=== PATIENT | female | born 1990 | race African-American/Black ===

== ENCOUNTER 2019-01-23 18:42 | Emergency (ER) | payer MEDICAID ==
[2019-01-23 18:51] VITALS: BP 123/64
--- NOTE | 2019-01-23 19:26 | ER Document Report ---
ED Medical Screen (RME) - General Chief Complaint: Nausea/Vomiting Stated Complaint: NAUSEA,VOMITING Time Seen by Provider: 01/23/19 19:24 Mode of Arrival: Ambulatory Information source: Patient Notes: 28-year-old female presents to ED for complaint of anxiety attack this morning. She states she got very nauseated when she became anxious. She states she then vomited several hours later became very dizzy. She states she does this sometimes when she gets a severe anxiety attack. She states her last menstrual period was January 09. She states she is also here because she has back pain. She states when she was 16 she woke up and she had bad back pain went to the doctor they told her she had scoliosis. They gave her some physical therapy and then they sent her on her way. She states she has never had any follow-up and she thinks her scoliosis is getting worse and she is getting more more back pain. She is alert oriented respirations regular and unlabored speaking in full sentences walks with even steady gait. Patient states she is does smoke 1 black in miles a day and smokes pot. She works at [email or web address] and lives with her family. I have greeted and performed a rapid initial assessment of this patient. A comprehensive ED assessment and evaluation of the patient, analysis of test results and completion of medical decision making process will be conducted by an additional ED providers. Dictation of this chart was performed using voice recognition software; therefore, there may be some unintended grammatical errors. - Related Data Allergies/Adverse Reactions: No Known Allergies Allergy (Unverified 01/23/19 18:45) Physical Exam - Vital signs Vitals: Temp Pulse Resp BP Pulse Ox 97.4 F 73 18 123/64 99 01/23/19 18:50 01/23/19 18:50 01/23/19 18:50 01/23/19 18:50 01/23/19 18:50 Course - Vital Signs Vital signs: Temp Pulse Resp BP Pulse Ox 97.4 F 73 18 123/64 99 01/23/19 18:50 01/23/19 18:50 01/23/19 18:50 01/23/19 18:50 01/23/19 18:50
[2019-01-23] MEDS ORDERED: ONDANSETRON 4 MG TAB.RAPDIS PO ONE (19:27)
[2019-01-23 20:09] LABS: ABSOLUTE LYMPHOCYTES (AUTO) 2.2 10^3/uL (0.5-4.7); ABSOLUTE MONOCYTES (AUTO) 0.4 10^3/uL (0.1-1.4); ABSOLUTE NEUT (AUTO) 4.1 10^3/uL (1.7-8.2); BASOPHILS % (AUTO) 0.5 % (0-2); EOSINOPHILS % (AUTO) 0.7 % (0-6); HEMOGLOBIN 12.9 g/dL (12.0-15.5); LYMPHOCYTES % (AUTO) 32.5 % (13-45); MEAN CORPUSCULAR HEMOGLOBIN 30.6 pg (27.0-33.4); MEAN CORPUSCULAR VOLUME 90 fl (80-97); MONOCYTES % (AUTO) 5.7 % (3-13); PLATELET COUNT 267 10^3/uL (150-450); RED BLOOD COUNT 4.21 10^6/uL (3.72-5.28); RED CELL DISTRIBUTION WIDTH 12.8 % (11.5-14.0); SEGMENTED NEUTROPHILS % (AUTO) 60.6 % (42-78); TOTAL CELLS COUNTED % (AUTO) 100 %; WHITE BLOOD COUNT 6.8 10^3/uL (4.0-10.5)
[2019-01-23 20:14] LABS: APPEARANCE,URINE CLEAR; BILIRUBIN,URINE NEGATIVE (NEGATIVE); COLOR,URINE STRAW; GLUCOSE, URINE NEGATIVE (NEGATIVE); KETONES,URINE NEGATIVE (NEGATIVE); LEUKOCYTE ESTERASE,URINE NEGATIVE (NEGATIVE); NITRITE,URINE NEGATIVE (NEGATIVE); PROTEIN,URINE NEGATIVE (NEGATIVE); URINE SPECIFIC GRAVITY 1.008; UROBILINOGEN,URINE NEGATIVE mg/dL (<2.0)
[2019-01-23 20:28] LABS: ALBUMIN 4.5 g/dL (3.5-5.0); ALKALINE PHOSPHATASE 46 U/L (38-126); ANION GAP 9 (5-19); ASPARTATE AMINO TRANSFERASE 19 U/L (14-36); BILIRUBIN,DIRECT 0.2 mg/dL (0.0-0.4); BILIRUBIN,TOTAL 0.7 mg/dL (0.2-1.3); BLOOD UREA NITROGEN 11 mg/dL (7-20); CALCIUM 9.6 mg/dL (8.4-10.2); CARBON DIOXIDE 29 mmol/L (22-30); CHLORIDE 101 mmol/L (98-107); GLUCOSE 103 mg/dL (75-110); POTASSIUM 3.7 mmol/L (3.6-5.0); TOTAL PROTEIN 7.5 g/dL (6.3-8.2)
[2019-01-23] MEDS ORDERED: HYDROXYZINE PAMOATE 25 MG CAPSULE (4 CAP/ER DISP) PO PRN (22:51)
[2019-01-23] MEDS ORDERED: PROMETHAZINE HCL 25 MG TABLET PO ONE (22:51)
--- NOTE | 2019-01-23 22:56 | ER Document Report ---
ED General - General Chief Complaint: Nausea/Vomiting Stated Complaint: NAUSEA,VOMITING Time Seen by Provider: 01/23/19 19:24 Mode of Arrival: Ambulatory Notes: Patient is a 28-year-old female that comes to the emergency department for chief complaint of a panic attack this morning where she got so worked up she vomited, she states she felt like her heart was racing at that time. She states she gets this periodically in the same symptoms happen today. She states that she gets into a mode where she cannot stop thinking about something and this triggers a panic attack. She denies suicidal ideations or homicidal ideations. She denies any current symptoms other than vague nausea. She states she has not eaten a nything all day either. She denies abdominal pain, she denies any flank pain but states she has ongoing pain in the muscles of her back that only sometimes responds to ibuprofen. She is not on any medications currently. She is not diagnosed with any thickness of scoliosis of the back. She smokes, smokes occasional marijuana, denies recreational drugs otherwise. - Related Data Allergies/Adverse Reactions: No Known Allergies Allergy (Unverified 01/23/19 18:45) Past Medical History - General Information source: Patient - Social History Smoking Status: Current Every Day Smoker Chew tobacco use (# tins/day): No Frequency of alcohol use: None Drug Abuse: None Lives with: Family Family History: Reviewed & Not Pertinent Patient has suicidal ideation: No Patient has homicidal ideation: No Renal/ Medical History: Denies: Hx Peritoneal Dialysis Review of Systems - Review of Systems Constitutional: See HPI EENT: No symptoms reported Cardiovascular: No symptoms reported Respiratory: No symptoms reported Gastrointestinal: See HPI Genitourinary: No symptoms reported Female Genitourinary: No symptoms reported Musculoskeletal: No symptoms reported Skin: No symptoms reported Hematologic/Lymphatic: No symptoms reported Neurological/Psychological: See HPI Physical Exam - Vital signs Vitals: Temp Pulse Resp BP Pulse Ox 97.4 F 73 18 123/64 99 01/23/19 18:50 01/23/19 18:50 01/23/19 18:50 01/23/19 18:50 01/23/19 18:50 - Notes Notes: GENERAL: Alert, interacts well. No acute distress. HEAD: Normocephalic, atraumatic. EYES: Pupils equal, round, and reactive to light. Extraocular movements intact. ENT: Oral mucosa moist, tongue midline. Oropharynx unremarkable. Airway patent. LUNGS: Clear to auscultation bilaterally, no wheezes, rales, or rhonchi. No respiratory distress. HEART: Regular rate and rhythm. No murmur ABDOMEN: Soft, non-tender. Non-distended. Bowel sounds present in all 4 quadrants. GENITOURINARY: Deferred EXTREMITIES: Moves all 4 extremities spontaneously. No edema, normal radial and dorsalis pedis pulses bilaterally. No cyanosis. BACK: no cervical, thoracic, lumbar midline tenderness. No saddle anesthesia, normal distal neurovascular exam. Moves all extremities in full range of motion. NEUROLOGICAL: Alert and oriented x3. Normal speech. Cranial nerves II through XII grossly intact. PSYCH: Normal affect, normal mood. SKIN: Warm, dry, normal turgor. No rashes or lesions noted. Course - Re-evaluation Re-evalutation: Patient not current complaints. She is reporting a panic attack which caused her to vomit, she does not have any anxiety. Denies SI or HI. She does not appear anxious on exam. She is reporting intermittent chronic lower back pain. Urinalysis unremarkable, chemistry and CBC unremarkable, test is negative. Patient very inquisitive about her labs, satisfied with negative results. Vital signs unremarkable. I discussed different options with patient. She already has primary care follow-up, however she requests treatment for back (provided muscle relaxer), treatment for panic attack, she will be provided with Vistaril as needed but encouraged her to have more long-term treatment with primary care initially and possible psychiatric referral. She will be provided with Phenergan if needed for nausea. Patient states gratefulness and that she is ready to go home. Stable at time of discharge. - Vital Signs Vital signs: Temp Pulse Resp BP Pulse Ox 97.4 F 73 18 123/64 99 01/23/19 18:50 01/23/19 18:50 01/23/19 18:50 01/23/19 18:50 01/23/19 18:50 - Laboratory Result Diagrams: 01/23/19 19:55 01/23/19 19:55 Discharge - Discharge Clinical Impression: Anxiety Nausea and vomiting Qualifiers: Vomiting type: unspecified Vomiting Intractability: non-intractable Qualified Code(s): R11.2 - Nausea with vomiting, unspecified Chronic back pain Qualifiers: Back pain location: low back pain Back pain laterality: bilateral Sciatica presence: without sciatica Qualified Code(s): M54.5 - Low back pain Condition: Stable Disposition: HOME, SELF-CARE Additional Instructions: Your laboratory work-up and evaluation are reassuring. No concerning findings noted. In the event of a panic attack take the Vistaril as prescribed if needed, follow-up with primary care for additional evaluation and management of this. You have been provided Phenergan for nausea as well. For your back I recommend heat, stretching, massage, and you have been provided with a muscle relaxer for this. Follow-up with primary care for additional evaluation of back pain as well. Return if you worsen including vomiting is uncontrolled, fever, difficulty breathing, severe worsening pain, or any other concerning or worsening symptoms. Prescriptions: Hydroxyzine Pamoate [Vistaril 25 mg Capsule] 1 - 2 cap PO Q6 PRN #30 capsule PRN Reason: Methocarbamol [Robaxin-750] 750 mg PO QID PRN #20 tablet PRN Reason: Promethazine HCl [Phenergan 25 mg Tablet] 25 mg PO Q6H PRN #15 tablet PRN Reason:
== END 2019-01-23 23:39 | disposition home or self-care (01) ==
LOC: ER 18:42
DX: F41.9 Anxiety disorder, unspecified (principal); R11.2 Nausea with vomiting, unspecified; M54.5 Low back pain; F17.200 Nicotine dependence, unspecified, uncomplicated
CPT/HCPCS: 36415; 84703; 85025; 80053; 81001; S0119; 99283